=== PATIENT | female | born 1945 | race Caucasian/White ===

== ENCOUNTER → 2016-12-13 | Outpatient (CLI) | payer MEDICARE, BC ==
[~2016-12-13] MED LIST: CLEOCIN150 MG PO; COLCHICINE PO; DILAUDID PO; DIOVAN PO; DIOVAN160 MG PO; HUMIRA; INDOMETHACIN75 MG PO; KEFLEX500 M2 PO; LEVOXYL PO; NEURONTIN PO; NEXIUM PO; ORENCIA125 MG/1 M SQ; PREMARIN PO; PREMARIN1.25 MG PO; SYNTHROID PO; TRIAMTERENE/HCTZ PO; TYLENOL #3 PO; VITAMIN D 4001 UDTAB PO; VITAMIN D50000 UNIT PO; XELJANZ5 MG PO
--- NOTE | ~2016-12-13 | MR17 ---
[facility] A Service of [facility] & [facility] RADIOLOGY TEXT RESULTS PATIENT: SUSY SPENCER LOCATION: [facility] : 49 UNIT #: [id number] AGE: [address]: Dillon Mortensen II, MD SEX: F ORDER DR: [id number] [facility] [address] [place], [place] [address] [id number] O MR#: [id number] Acc #: [id number] NAME: SUSY SPENCER : 1945 SEX: F STUDY DATE/TIME: 12/13/2016 14:37 UNIT: [facility] ROOM: STUDY DESCRIPTION: MR Brain WWo Contrast Attending Physician: Dillon Mortensen II., M.D. Referring Physician: Dillon Mortensen II., M.D. Ordering Physician: Dillon Mortensen II., M.D. Primary Care Physician: Kasi Mendez Jr., M.D. MRI CENTER REPORT This report is preliminary unless electronic signature is present. EXAM Brain MRI with and without HISTORY Dizziness, vertigo, started 10/11/2016 with nausea that lasted about 2-3 days. Patient took Meclizine and got better. Symptoms have resolved today. No history of cancer or trauma. Patient does have a history of hypertension and rheumatoid arthritis. COMMENT MRI of the brain was performed prior to and following intravenous administration of 13 mL MultiHance. There is a separate MR angiogram neck and MR angiogram intracranial same day. There is no evidence for a recent ischemic insult on the diffusion series. No Chiari-1 malformation. There is moderate white matter signal abnormality with too numerous to count small lesions in the supratentorial brain especially in the deep to subcortical white matter and to a lesser extent the periventricular white matter. The largest of these lesions is about 7 mm dimension. They are nonspecific and could be due to small vessel disease in light of history of hypertension. Note: There is little, if any, lacunar-type disease in the basal ganglia, thalami, or brainstem. Lesions are not associated with mass effect or pathologic enhancement. It is possible they are a manifestation of a prior episode of vasculitis in light of rheumatoid arthritis history. Please correlate with history of severe longstanding migraine. Demyelinating disease such as multiple sclerosis would be very unusual in this age group. There is no extraaxial fluid collection. There is no MRI evidence for intracranial hemorrhage. Following contrast administration, there is no pathologic intracranial enhancement or intracranial mass lesion suspected. The major intracranial flow voids are maintained. The mastoid air cells are clear. The paranasal sinuses are clear. The appearance of the internal auditory STS. [facility] A Service of [facility] RADIOLOGY TEXT RESULTS PATIENT: SUSY SPENCER LOCATION: [facility] : 47 UNIT #: [id number] AGE: [address]: Dillon Mortensen II, MD SEX: F ORDER DR: glenn unremarkable on this routine brain MRI. Nothing on this study to suggest acoustic Schwannoma. IMPRESSION 1. Moderate nonspecific white matter disease detailed above. 2. No intracranial mass lesion, mass effect, or pathologic intracranial enhancement. No recent ischemic insult. Dictated by... Jennifer Sanchez M.D. THIS IS AN ELECTRONICALLY VERIFIED REPORT Jennifer Sanchez M.D. at 12/14/2016 12:14 PM SALIMA/gareth TD: 12/14/2016 10:12 JOB #: [id number] MRI CENTER REPORT COPY
--- NOTE | ~2016-12-13 | MR134 ---
[facility] A Service of [facility] RADIOLOGY TEXT RESULTS PATIENT: SUSY SPENCER LOCATION: [facility] : 47 UNIT #: [id number] AGE: [address]: Dillon Mortensen II, MD SEX: F ORDER DR: [id number] [place] [id number] [facility]. [place], [place] [address] [id number] O MR#: [id number] Acc #: [id number] NAME: SUSY SPENCER : 1945 SEX: F STUDY DATE/TIME: 12/13/2016 14:09 UNIT: [facility] ROOM: STUDY DESCRIPTION: MR MRA Neck Wo Contrast Attending Physician: Dillon Mortensen II., M.D. Referring Physician: Dillon Mortensen II., M.D. Ordering Physician: Dillon Mortensen II., M.D. Primary Care Physician: Kasi Mendez Jr., M.D. MRI CENTER REPORT This report is preliminary unless electronic signature is present. EXAM MRA of the cervical cerebral vasculature performed on 12/13/2016. HISTORY 71-year-old female with dizziness and nausea for 2-3 days starting in September. TECHNIQUE 2-D and 3-D onas-gd-lwoipg images were obtained through the region of the cervical cerebral vasculature and MIP reconstruction was then performed in multiple planes. FINDINGS The cervical carotid bifurcations are widely patent bilaterally. No stenosis is present by NASCET criteria. The vertebral arteries are also patent and slight right side dominance is seen. The vertebral artery origins are difficult to appreciate due to MR artifact. IMPRESSION 1. No evidence of a cervical carotid stenosis by NASCET criteria. 2. Patent vertebral arteries bilaterally. Dictated by... Robles Garg M.D. THIS IS AN ELECTRONICALLY VERIFIED REPORT Robles Garg M.D. at 12/14/2016 7:05 PM KATELYNN/aimee TD: 12/14/2016 00:25 JOB #: [id number] [facility] A Service of [facility] RADIOLOGY TEXT RESULTS PATIENT: SUSY SPENCER [id number] [birth year] UNIT #: [id number] AGE: [address]: Dillon Mortensen II, MD SEX: F ORDER DR: MRI CENTER REPORT COPY
--- NOTE | ~2016-12-13 | MR122 ---
[facility] A Service of [facility] & [facility] RADIOLOGY TEXT RESULTS PATIENT: SUSY SPENCER LOCATION: [facility] : 49 UNIT #: [id number] AGE: [address]: Dillon Mortensen II, MD SEX: F ORDER DR: [id number] [facility] [address] [place], [place] [address] [id number] O MR#: [id number] Acc #: [id number] NAME: SUSY SPENCER : 1945 SEX: F STUDY DATE/TIME: 12/13/2016 14:29 UNIT: [facility] ROOM: STUDY DESCRIPTION: MR MRA Head Wo Contrast Attending Physician: Dillon oMrtensen II., M.D. Referring Physician: Dillon Mortensen II., M.D. Ordering Physician: Dillon Mortensen II., M.D. Primary Care Physician: Kasi Mendez Jr., M.D. MRI CENTER REPORT This report is preliminary unless electronic signature is present. EXAM MRA of the intracranial vasculature without contrast, 12/13/2016 CLINICAL HISTORY 71-year-old female with dizziness and vertigo starting back in September 2016. Patient has had nausea for the past 2-3 days. Meclizine has not improved the patient's symptoms. TECHNIQUE 3-D fqdg-tw-fpufys images were obtained through the region of the intracranial vasculature and MIP reconstruction was then performed in multiple planes. FINDINGS The intracranial ICA is normal in caliber bilaterally. The A1 and M1 segments are normal in caliber and the MCA and JANETT runoffs are symmetric. No aneurysms or hypervascular lesions are identified. In the posterior circulation the vertebrobasilar junction is mildly tortuous but normal in caliber. Basilar artery is also normal in caliber but tortuous as well. Basilar artery terminates into normal P1 and P2 segments bilaterally as well as single bilateral superior cerebellar arteries. IMPRESSION 1. No intracranial stenosis, aneurysm or hypervascular lesion. 2. No evidence to suggest AV shunting. Dictated by... Robles Garg M.D. THIS IS AN ELECTRONICALLY VERIFIED REPORT Robles Garg M.D. at 12/14/2016 7:05 PM KATELYNN/roderick [facility]. [facility] A Service of [facility] & [facility] RADIOLOGY TEXT RESULTS PATIENT: SUSY SPENCER [facility] UNIT #: [id number] AGE: [address]: Dillon Mortensen II, MD SEX: F ORDER DR: TD: 12/14/2016 00:44 JOB #: [id number] MRI CENTER REPORT COPY
[2016-12-14 09:34] LABS: POC - CREATININE 0.91 mg/dL (0.44-1.03); POC - GFR >60.0 mL/min (>60)
== END | disposition home or self-care (01) ==
LOC: CMRI 13:18
PROVIDERS: Psychiatry & Neurology Neurology
DX: R42 Dizziness and giddiness (principal); R90.82 White matter disease, unspecified
CPT/HCPCS: 70544; 70547; 70553; 82565; A9577